=== PATIENT | female | born 1985 | race Caucasian/White ===

== ENCOUNTER 2017-03-04 21:21 | Emergency (ER) | payer BC ==
[~2017-03-04] VITALS: Ht 160 cm; Wt 63.5 kg
--- NOTE | 2017-03-04 21:33 | NUR ---
PT [facility] BED 4 AMBULATORY, C/O MID ABD PAIN "OSCAR" LIKE PAIN X 1 WKS, NAUSEA/ VOMIT. 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 VSS/RESP EVEN AND UNLABORED/NAD NOTED/SKIN WARM AND DRY/AOX4. NO ACTIVE VOMITING NOTED.
[2017-03-04] MEDS ORDERED: ONDANSETRON 4 MG TAB.RAPDIS ONE (23:12)
--- NOTE | 2017-03-04 23:14 | NUR ---
MEDICATED ORDERED PER MD.
[2017-03-04] MEDS ORDERED: ONDANSETRON 4 MG TAB.RAPDIS SL ONE (23:30)
--- NOTE | 2017-03-04 23:40 | NUR ---
18G IV TO L AC USING ASEPTIC TECH, BLOOD SAMPLE SENT TO LAB.
[2017-03-04 23:54] LABS: BASOPHILS % (AUTO) 0.4 % (0.0-2.0); EOSINOPHILS # (AUTO) 0.2 /CMM (0.0-0.7); EOSINOPHILS % (AUTO) 1.9 % (0.0-6.0); HEMATOCRIT 36 % (33-45); HEMOGLOBIN 12.1 g/dL (11.5-14.8); LYMPHOCYTES # (AUTO) 1.8 /CMM (0.8-4.8); LYMPHOCYTES % (AUTO) 21.4 % (20.0-44.0); MEAN CORPUSCULAR HEMOGLOBIN 28 PG (26.0-33.0); MEAN CORPUSCULAR HGB CONC 33 g/dl (31.0-36.0); MEAN CORPUSCULAR VOLUME 84 fL (82-100); MONOCYTES % (AUTO) 11.9 % (2.0-12.0); NEUTROPHILS # (AUTO) 5.3 /CMM (1.8-8.9); NEUTROPHILS % (AUTO) 64.4 % (43.0-81.0); PLATELET COUNT (AUTO) 299 /CMM (150-450); RDW COEFFICIENT OF VARIATION 14.8 (11.5-15.0); RED BLOOD CELL COUNT(AUTO) 4.28 MIL/uL (4.0-5.2); WHITE BLOOD COUNT (AUTO) 8.3 K/uL (4.3-11.0)
[2017-03-04] MEDS ORDERED: ONDANSETRON HCL/PF 4 MG/2 ML VIAL ONE (23:54)
[2017-03-04] MEDS ORDERED: FAMOTIDINE/PF INJ 20 MG/2 ML VIAL IV ONE (23:54)
[2017-03-05] MEDS ORDERED: ONDANSETRON HCL/PF 4 MG/2 ML VIAL IV ONE
[2017-03-05] MEDS ORDERED: FAMOTIDINE/PF INJ 20 MG/2 ML VIAL IV ONE
[2017-03-05] MEDS ORDERED: IV NS 0.9% 1,000 ML BAG IV ONE
--- NOTE | 2017-03-05 00:01 | NUR ---
MEDICATED PER MD ORDERS.
[2017-03-05 00:03] LABS: CALCIUM, SERUM 9.1 mg/dL (8.5-10.1); CREATININE 0.8 mg/dL (0.6-1.3); POTASSIUM 3.5 mmol/L (3.5-5.1)
[2017-03-05 00:09] LABS: ALBUMIN 3.4 g/dL (3.4-5.0); BILIRUBIN,DIRECT 0.1 mg/dL (0.0-0.2); BILIRUBIN,TOTAL 0.3 mg/dL (0.2-1.0); TOTAL PROTEIN, SERUM 7.6 g/dL (6.4-8.2)
--- NOTE | 2017-03-05 01:15 | NUR ---
Patient discharged to home in stable condition. Written and verbal after care instructions given. Patient verbalizes understanding of instruction. IV removed. Catheter intact and site benign. Pressure and 4x4 applied to site. No bleeding noted. Pt ambulatory with a steady gait.
--- NOTE | 2017-03-05 01:18 | NUR ---
Lanie long in ED - 03/05/17 at 0119 by DAVID 18G IV TO L AC USING ASEPTIC TECH, BLOOD SQAMPLE SENT TO LAB.
[2017-03-05 01:26] VITALS: BP 116/76
== END 2017-03-05 01:29 | disposition home or self-care (01) ==
LOC: ER 21:23
DX: E86.0 Dehydration (principal); K52.9 Noninfective gastroenteritis and colitis, unspecified; F32.9 Major depressive disorder, single episode, unspecified; Z98.890 Other specified postprocedural states
CPT/HCPCS: 36415; 80048; 80076; 83690; 84703; 85025; 96361; 96374; 96375; 99284; A4606; J2405; J3490; J7030; Q0162; Z7610